=== PATIENT | male | born 1975 | race African-American/Black ===

== ENCOUNTER 2023-01-01 13:54 | Emergency (ER) | payer MEDICAID, SELFPAY ==
[2023-01-01 14:04] VITALS: BP 187/118; PULSE 75; RESP 16; TEMP 36.9; O2SAT 97
--- NOTE | 2023-01-01 14:16 | ECG_ITS ---
Measurements Intervals [place] Rate: 69 P: 20 SC: 155 QRS: 29 QRSD: 84 T: 27 QT: 392 QTc: 422 Interpretive Statements SINUS RHYTHM NORMAL ECG NO PREVIOUS ECG AVAILABLE FOR COMPARISON Electronically Signed On 01-01-2023 14:18:18 CDT by Jun Clolazo D.O.
--- NOTE | 2023-01-01 14:17 | ED.DIZZY ---
HPI - Dizziness General Chief Complaint: Recheck/Abnormal Lab/Rx Stated Complaint: Dizzines/ High B/P Time Seen by Provider: 01/01/23 14:15 Source: patient Mode of arrival: ambulatory Limitations: no limitations History of Present Illness HPI Narrative: Mr. Rashid is a 47-year-old male patient presenting to the clinic today with complaints of a 3 week history of dizziness and high blood pressure. He reports that he takes his blood pressure once daily. Blood pressure today is 187/118. States that he is currently taking all his blood pressure medications as prescribed. Denies any shortness of breath, chest pain, headache, or visual changes. States that the dizziness is worse when taking a deep breath and when he goes from a lying to a sitting position. Related Data Allergies Allergy/AdvReac Type Severity Reaction Status Date / Time No Known Allergies Allergy Verified 01/01/23 14:08 Review of Systems Review of Systems: Pertinent positives per HPI. Patient denies any fever, chills, rash, headache, visual changes, dizziness, cough, runny nose, sore throat, shortness of breath, chest pain, palpitations, nausea, vomiting, diarrhea, constipation, abdominal pain, or any urinary issues. [facility] Past Medical History Medical History Essential hypertension GERD without esophagitis Surgical History Surgical History History of inguinal hernia repair, bilateral 1989' Family History Family History Grandparent Diabetes mellitus Hypertension Mother Hypertension Sibling Hypertension Social History Social History Social History: . 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 There is no relevant family history pertinent to the patient complaint. Exam Narrative: General: Well-developed, well nourished, in no apparent distress Head: Normocephalic, atraumatic. Cardio: Regular rate and rhythm, s1 and s2 normal, no murmur appreciated. Resp: Clear to auscultation bilaterally, no rhonchi, rales, wheezing or rubs. Extremities: No deformity, no edema, no cyanosis, capillary refill less than 2 seconds, peripheral pulses palpable and strong. Integumentary: [place], warm, and dry, intact without lesion, no rashes. Course Course Emergency Course: Portions of this record may have been created with voice recognition software. Level of Care: Express Care Visit Vital Signs Vital signs: Vital Signs Temperature 36.9 C 01/01/23 14:04 Pulse Rate 75 01/01/23 14:04 Respiratory Rate 16 01/01/23 14:04 Blood Pressure 187/118 H 01/01/23 14:04 Pulse Oximetry 97 01/01/23 14:04 Oxygen Delivery Room Air 01/01/23 14:04 Temperature 36.9 C 01/01/23 14:04 Pulse Rate 75 01/01/23 14:04 Respiratory Rate 16 01/01/23 14:04 Blood Pressure 187/118 H 01/01/23 14:04 Pulse Oximetry
== END 2023-01-01 14:26 | disposition short-term general hospital (02) ==
PROVIDERS: Emergency Provider Nurse Practitioner Family
DX: I16.0 Hypertensive urgency (principal); I10 Essential (primary) hypertension; K21.9 Gastro-esophageal reflux disease without esophagitis
CPT/HCPCS: 93005; 99213; G0463

== ENCOUNTER 2023-01-01 15:13 | Emergency (ER) | payer MEDICAID, SELFPAY ==
[2023-01-01] VITALS (7 sets, daily range): BP systolic 164–176; BP diastolic 112–124; PULSE 63–74; RESP 13–19; TEMP 36.6; O2SAT 97–100
--- NOTE | ~2023-01-01 | CT_ITS ---
EXAMINATION: CT brain wo con DATE: 01/01/2023 15:48 INDICATION: Dizziness. TECHNIQUE: Computed tomography (CT) of the head was performed without intravenous contrast. The mA wa s adjusted according to patient size. Iterative reconstruction technique was employed. The dose-lengt h product was 605.33 mGy-cm. COMPARISON: None FINDINGS: There is no intracranial hemorrhage, acute infarction, or abnormal intracranial mass lesion . The ventricles are normal in size. The orbits are normal. The paranasal sinuses are clear. The mast oid air cells are normal. IMPRESSION: 1. Normal brain. Reviewed, dictated and finalized at location A. IMPRESSION: 1. Normal brain.
--- NOTE | 2023-01-01 15:38 | ECG_ITS ---
Measurements Intervals [place] Rate: 64 P: 17 [place]: 151 QRS: -3 QRSD: 88 T: 24 QT: 395 QTc: 409 Interpretive Statements SINUS RHYTHM BORDERLINE R WAVE PROGRESSION, ANTERIOR LEADS BORDERLINE ECG COMPARED TO ECG 01/01/2023 14:14:01 NO SIGNIFICANT CHANGES Electronically Signed On 01-01-2023 16:10:15 CDT by Jun Collazo D.O.
[2023-01-01 16:12] LABS: Basophils Percent Auto 0.2 % (0.2-1.2); Eosinophils Absolute Auto 0.1 K/mm3 (0-0.3); Eosinophils Percent Auto 0.5 % (0-4.4); Hematocrit 43.2 % (42.0-52.0); Hemoglobin 13.7 g/dL (14.0-18.0); Immature Granulocyte Absolute 0.04 K/mm3 (0.00-0.031); Immature Granulocyte Percent A 0.4 % (0-0.5); Lymphocytes Absolute Auto 1.68 K/mm3 (0.9-3.2); Mean Corpuscular HGB Conc 31.7 g/dl (32-36); Mean Corpuscular Hemoglobin 24.8 pg (26-34); Mean Corpuscular Volume 78.3 fl (80-100); Mean Platelet Volume 10.2 fl (7.4-10.4); Monocytes Absolute Auto 0.7 K/mm3 (0.1-0.6); Monocytes Percent Auto 6.9 % (2.6-8.5); Platelet Count Result 281 k/mm3 (150-375); Red Blood Count 5.52 M/mm3 (4.6-6.20); Red Cell Distribution Width 15.9 % (11.5-14.5); White Blood Count 10.5 K/mm3 (4.5-10.0)
--- NOTE | 2023-01-01 16:26 | ED.GENADULT ---
HPI - General Adult General Chief complaint: Recheck/Abnormal Lab/Rx Stated complaint: HTN Time Seen by Provider: 01/01/23 15:31 History of Present Illness HPI narrative: Pt presents with intermittent mild dizziness and elevated BP. Pt was seen at [facility] today for dizziness and found to have elevated BP. Pt sent to ER for evaluation. Pt denies CP or DEAL. Dizziness is intermittent and not positional. Pt denies weakness or speech issues. Related Data Allergies Allergy/AdvReac Type Severity Reaction Status Date / Time No Known Allergies Allergy Verified 01/01/23 15:29 Review of Systems Review of Systems: All systems reviewed & are unremarkable except as noted in HPI and below PMFSH Past Medical History Medical History Essential hypertension GERD without esophagitis Surgical History Surgical History History of inguinal hernia repair, bilateral Family History Family History Grandparent Diabetes mellitus Hypertension Mother Hypertension Sibling Hypertension Social History Social History Social History: . 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 [employer] Gender identity (if verbalized by the patient): Male Sexual Orientation (if Verbalized by the Patient): Straight or Heterosexual Agree to blood products: Yes Exam Const: General: healthy appearing Nutritional Appearance: well nourished Orientation/consciousness: patient oriented x3 Limitations: no limitations Eyes: Pupils: Equal, round and reactive pupils present EOM: EOMs intact bilaterally Neck: Neck: normal visual inspection and no lymphadenopathy Resp: Effort & Inspection: normal respiratory effort Auscultation: clear to auscultation bilaterally Cardio: Rate: regular rate Rhythm: regular rhythm GI: GI Palp: Yes Soft to palpation Auscultation: normal bowel sounds Skin: General skin exam: normal color Rashes: no rashes Wounds: no wounds Neuro: General: patient oriented x3, moves all extremities and no focal motor deficits Cranial nerves: Yes Nystagmus not present Speech: normal speech Extrem: General: normal to inspection and no clubbing, cyanosis or edema Psych: Mental Status: mental status grossly normal Affect: normal affect Attitude: cooperative Course Vital Signs Vital signs: Vital Signs Temperature 97.9 F 01/01/23 15:14 Pulse Rate 72 01/01/23 15:14 Respiratory Rate 16 01/01/23 15:14 Blood Pressure 170/115 H 01/01/23 15:14 Pulse Oximetry 97 01/01/23 15:14 Oxygen Delivery Room Air 01/01/23 15:14 Temperature 97.9 F 01/01/23 15:14 Pulse Rate 68 01/01/23 17:30 Respiratory Rate 16 01/01/23 17:30 Blood Pressure 167/113 H 01/01/23 17:30 Pulse Oximetry 100 01/01/23 17:30 Oxygen Delivery Room Air 01/01/23 15:45 Medical Decision Making MDM Narrative Medical decision making narrative: pt has intermittent non positional dizziness and incidental HTN. will check CT to rule out bleed or cva and labs and ekg and may give dose of clonidine for BP. labs and ct fine. pt admits to having bp meds and not taking them but can't remember
[2023-01-01 16:32] LABS: Alanine Aminotransferase 26 U/L (6-50); Albumin Level 4.1 g/dL (3.5-5.1); Alkaline Phosphatase 76 U/L (38-126); Anion Gap 5 mmol/L (8-16); Aspartate Amino Transferase 36 U/L (17-59); Bilirubin,Total 0.5 mg/dL (0.2-1.3); Blood Urea Nitrogen 16 mg/dL (9-20); Calcium 8.8 mg/dL (8.4-10.2); Carbon Dioxide 33 mmol/L (22-30); Chloride 99 mmol/L (98-107); Estimated CRCL calculation 80 ml/min; Estimated Glomerular Filt Rate > 60; Glucose 94 mg/dL (65-110); Potassium 3.6 mmol/L (3.4-5.0); Sodium 137 mmol/L (137-145)
[2023-01-01] MEDS: cloNIDine HCL 0.1 MG TABLET PO (16:48)
== END 2023-01-01 17:30 | disposition home or self-care (01) ==
PROVIDERS: Emergency Provider Emergency Medicine
DX: I10 Essential (primary) hypertension (principal)
CPT/HCPCS: 36415; 70450; 80053; 85025; 93005; 99284; A9270

== ENCOUNTER 2023-08-06 13:37 | Emergency (ER) | payer OTHER, SELFPAY ==
--- NOTE | 2023-08-06 13:43 | ED.MALEGU ---
HPI - Male Genitourinary General Chief complaint: Urogenital-Male Stated complaint: blood in urine Time Seen by Provider: 08/06/23 13:44 Source: patient Mode of arrival: ambulatory Limitations: no limitations History of Present Illness HPI Narrative: Nacho is a 48-year-old male patient presenting to the clinic today with complaints of blood in his urine that started this morning. He reported some dark blood noted in his urine. Denies any urinary symptoms other than the blood in his urine. Denies back pain, abdominal pain, fever, chills, or body aches. Related Data Allergies Allergy/AdvReac Type Severity Reaction Status Date / Time No Known Allergies Allergy Verified 04/02/23 14:56 Review of Systems Review of Systems: Pertinent positives per HPI. Patient denies any fever, chills, rash, headache, visual changes, dizziness, cough, runny nose, sore throat, shortness of breath, chest pain, palpitations, nausea, vomiting, diarrhea, constipation, abdominal pain, PMFSH Past Medical History Medical History Essential hypertension GERD without esophagitis Surgical History Surgical History History of inguinal hernia repair, bilateral 1990's Family History Family History Grandparent Diabetes mellitus Hypertension Mother Hypertension Sibling Hypertension Social History Social History Social History: . 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 There is no relevant family history pertinent to the patient complaint. Exam Narrative: General: Well-developed, obese, in no apparent distress. Head: Normocephalic, atraumatic. Cardio: Regular rate and rhythm, s1 and s2 normal, no murmur appreciated. Resp: Clear to auscultation bilaterally, no rhonchi, rales, wheezing or rubs. Abdomen: Soft, pliable, bowel sounds present in all quadrants, non-tender to palpation, no organomegly, no CVAT tenderness. Course Course Emergency Course: Portions of this record may have been created with voice recognition software. Level of Care: Express Care Visit Vital Signs Vital signs: Vital Signs Temperature 36.8 C 08/06/23 13:55 Pulse Rate 64 08/06/23 13:55 Respiratory Rate 16 08/06/23 13:55 Blood Pressure 139/79 08/06/23 13:55 Pulse Oximetry 99 08/06/23 13:55 Oxygen Delivery Room Air 08/06/23 13:55 Temperature 36.8 C 08/06/23 13:55 Pulse Rate 64 08/06/23 13:55 Respiratory Rate 16 08/06/23 13:55 Blood Pressure 139/79 08/06/23 13:55 Pulse Oximetry 99 08/06/23 13:55 Oxygen Delivery Room Air 08/06/23 13:55 Vital signs reviewed MDM - Male Genitourinary MDM Narrative Medical decision making narrative: At the time of visit patient is resting comfortably on the exam table. Patient appears to be nontoxic. UA shows 2+ blood and 1+ protein. Reviewing his
[2023-08-06 13:55] VITALS: BP 139/79; PULSE 64; RESP 16; TEMP 36.8; O2SAT 99
== END 2023-08-06 14:20 | disposition home or self-care (01) ==
PROVIDERS: Emergency Provider Nurse Practitioner Family; PCP Family Medicine
DX: R80.9 Proteinuria, unspecified (principal); R31.9 Hematuria, unspecified; I10 Essential (primary) hypertension; K21.9 Gastro-esophageal reflux disease without esophagitis
CPT/HCPCS: 81003; 99212; G0463

== ENCOUNTER 2024-01-30 14:13 | Outpatient (CLI) | payer OTHER, SELFPAY ==
--- NOTE | ~2024-01-30 | MR_ITS ---
EXAMINATION: MR brain/brain stem wo/w con DATE: 01/30/2024 16:01 INDICATION: Other abnormalities of gait and immobility. TECHNIQUE: Magnetic resonance imaging (MRI) of the brain and brainstem was performed without and with 20 mL MultiHance intravenous contrast. COMPARISON: Head CT 01/01/2023 FINDINGS: There are scattered areas of nonspecific increased T2-weighted signal intensity in the cere bral white matter with a periventricular predominance. There is a large distribution of abnormal cont rast enhancement involving the cerebral white matter with a periventricular predominance and the juan and cerebellar white matter. There is no intracranial hemorrhage, acute infarction, or abnormal intr acranial mass lesion. The ventricles are normal in size. The orbits are normal. The paranasal sinuses are clear. The mastoid air cells are normal. IMPRESSION: 1. Extensive white matter disease with abnormal contrast enhancement. The differential diagnosis incl udes drug abuse, toxic exposure, metabolic abnormality, vasculitis, dysmyelinating disease, and demye linating disease. Reviewed, dictated and finalized at location E. IMPRESSION: 1. Extensive white matter disease with abnormal contrast enhancement. The diffe rential diagnosis includes drug abuse, toxic exposure, metabolic abnormality, v asculitis, dysmyelinating disease, and demyelinating disease.
== END 2024-01-30 14:14 | disposition home or self-care (01) ==
PROVIDERS: PCP Family Medicine; Visit Provider Nurse Practitioner Family
DX: R26.89 Other abnormalities of gait and mobility (principal); R41.3 Other amnesia; R90.82 White matter disease, unspecified
CPT/HCPCS: 70553; A9577

== ENCOUNTER 2024-02-08 13:13 | Emergency (ER) | payer OTHER, SELFPAY ==
[2024-02-08] VITALS (9 sets, daily range): BP systolic 113–136; BP diastolic 49–87; PULSE 55–61; RESP 15–24; TEMP 36.8; O2SAT 95–100
--- NOTE | ~2024-02-08 | XR_ITS ---
EXAMINATION: XR chest 2V DATE: 02/08/2024 14:41 INDICATION: Bilateral lower extremity weakness. TECHNIQUE: Frontal and lateral views of the chest were obtained. COMPARISON: None. FINDINGS: There is no pneumonia, pleural effusion, or pneumothorax. The heart size is normal. IMPRESSION: 1. No acute cardiopulmonary disease. Reviewed, dictated and finalized at location E.
--- NOTE | 2024-02-08 13:43 | ECG_ITS ---
Test Date: 2024-02-08 14:12:48 Measurements Intervals [place] Rate: 55 P: 9 [place]: 159 QRS: 18 QRSD: 84 T: -1 QT: 414 QTc: 398 Interpretive Statements SINUS BRADYCARDIA NONSPECIFIC T-WAVE ABNORMALITY BORDERLINE ECG No previous ECG available for comparison Electronically Signed On 02-09-2024 07:15:34 CDT by Ghulam Perez M.D.
[2024-02-08 14:18] LABS: Basophils Percent Auto 0.5 % (0.2-1.2); Eosinophils Absolute Auto 0.1 K/mm3 (0-0.3); Eosinophils Percent Auto 1.4 % (0-4.4); Hematocrit 40.2 % (42.0-52.0); Hemoglobin 13.2 g/dL (14.0-18.0); Immature Granulocyte Absolute 0.02 K/mm3 (0.00-0.031); Immature Granulocyte Percent A 0.2 % (0-0.5); Lymphocytes Percent Auto 24.9 % (18.3-44.2); Mean Corpuscular HGB Conc 32.8 g/dl (32-36); Mean Corpuscular Volume 76.3 fl (80-100); Mean Platelet Volume 10.8 fl (7.4-10.4); Monocytes Absolute Auto 0.8 K/mm3 (0.1-0.6); Monocytes Percent Auto 9.1 % (2.6-8.5); Neutrophils Absolute Auto 5.6 K/mm3 (1.3-6.7); Neutrophils Percent Auto 63.9 % (45.5-73.1); Platelet Count Result 260 k/mm3 (150-375); Red Blood Count 5.27 M/mm3 (4.6-6.20); Red Cell Distribution Width 15.4 % (11.5-14.5); White Blood Count 8.8 K/mm3 (4.5-10.0)
--- NOTE | 2024-02-08 14:28 | ED.GENADULT ---
HPI - General Adult General Chief complaint: Urogenital-Male <Heber Cardona PA-C - Last Filed: 02/08/24 23:45> Stated complaint: incontinent <Heber Cardona PA-C - Last Filed: 02/08/24 23:45> Time Seen by Provider: 02/08/24 14:00 <Heber Cardona PA-C - Last Filed: 02/08/24 23:45> Source: patient and family <Heber Cardona PA-C - Last Filed: 02/08/24 23:45> Mode of arrival: ambulatory <Heber Cardona PA-C - Last Filed: 02/08/24 23:45> Limitations: altered mental status <Heber Cardona PA-C - Last Filed: 02/08/24 23:45> History of Present Illness HPI narrative: This is a 48-year-old male who presents to the ED with chief complaint urine incontinence and unsteady gait. his is here and supplementing history. They have been undergoing workup with PCP regarding his unsteady gait for the past several months. Reports that he has been steadily declining over the past year since Spring 2022. she states that in the last week or 2 he has had more episodes of urine incontinence which is new for him. she states that he has had a steady cognitive decline over the past year as well as a very unsteady, shuffling gait. He has been going to physical therapy and using a Rollator walker for mobility. She states he has been doing well with the walker. Denies any new onset focal deficit today. Patient states that he is not having any pain. He answers mainly in one-word answers. states this has been when he has been doing for the past year. patient states that he is unaware when the urinary incontinence happens. He does not feel urge. they deny incontinent of bowels. patient denies headache, vision change, chest pain, shortness of breath, cough, Fevers, chills. Per chart review outpatient MRI done 01/30/24: IMPRESSION: 1. Extensive white matter disease with abnormal contrast enhancement. The differential diagnosis includes drug abuse, toxic exposure, metabolic abnormality, vasculitis, dysmyelinating disease, and demyelinating disease.. patient's states they are aware of the MRI results as told by PCP. They are being scheduled for Neurology appointment but this is not supposed to happen until June. <Heber Cardona PA-C - Last Filed: 02/08/24 23:45> Related Data Allergies/adverse reactions: Allergies Allergy/AdvReac Type Severity Reaction Status Date / Time No Known Allergies Allergy Verified 12/03/23 11:20 <Heber Cardona PA-C - Last Filed: 02/08/24 23:45> Review of Systems Review of Systems: All systems as dictated in HPI <Heber Cardona PA-C - Last Filed: 02/08/24 23:45> [facility] Past Medical History Medical History: Medical History (Updated 02/08/24 @ 17:11 by Heber Cardona PA-C) Essential hypertension GERD without esophagitis White matter abnormality on MRI of brain <Heber Cardona PA-C - Last Filed: 02/08/24 23:45> Surgical History Surgical History: Surgical History (Reviewed 12/03/23 @ 11:21 by Wen Fenton [facility]) History of inguinal hernia repair, bilateral <Heber Cardona PA-C - Last Filed: 02/08/24 23:45> Family History Family History: Family History (Reviewed 12/03/23 @ 11:21 by Wen Fenton [facility]) Grandparent Diabetes mellitus Hypertension Mother Hypertension Sibling Hypertension <Heber Cardona PA-C - Last Filed: 02/08/24 23:45> Social History Social History: Social History (Reviewed 12/03/23 @ 11:21 by Wen Fenton [facility]) Social History: . 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 Smoking status: Never smoker Second hand tobacco smoke exposure: No Alcohol intake: never Substance use: never Substance use type: does not use Lack of Transportation: No Lack of Food: Sometimes True Current Housing: I Have Housing Concerned About Future Housing: No Difficulty Paying Gas/Electric Bills: No Difficulty Paying for Meds: No Currently Unemployed: YES [employer]
[2024-02-08 14:36] LABS: Alanine Aminotransferase 15 U/L (6-50); Alkaline Phosphatase 69 U/L (38-126); Anion Gap 4 mmol/L (4-12); Aspartate Amino Transferase 25 U/L (17-59); Bilirubin,Total 0.5 mg/dL (0.2-1.3); Blood Urea Nitrogen 21 mg/dL (9-20); Calcium 9.2 mg/dL (8.4-10.2); Carbon Dioxide 31 mmol/L (22-30); Chloride 103 mmol/L (98-107); Estimated Glomerular Filt Rate > 60; Glucose 99 mg/dL (65-110); Potassium 3.1 mmol/L (3.4-5.0); Sodium 138 mmol/L (137-145)
[2024-02-08] MEDS: POTASSIUM CHLORIDE 20 MEQ ER TABLET 40 MEQ PO (14:44)
--- NOTE | 2024-02-08 17:36 | PC.NURSE ---
patient strongly declined urinary straight catheter
== END 2024-02-08 17:20 | disposition home or self-care (01) ==
PROVIDERS: Emergency Medicine; Emergency Provider Physician Assistant; PCP Family Medicine
DX: R32 Unspecified urinary incontinence (principal); I10 Essential (primary) hypertension
CPT/HCPCS: 36415; 71046; 80053; 85025; 93005; 99283; A9270